=== PATIENT | male | born 1955 | race Caucasian/White ===

== ENCOUNTER 2017-06-17 21:14 | Emergency (ER) | payer BC ==
[~2017-06-17] VITALS: Ht 175.3 cm; Wt 104.6 kg
[2017-06-17 21:21] VITALS: TEMP 36.9; Ht 175.3 cm; Wt 104.6 kg
[2017-06-17] MEDS ORDERED: FENTANYL CITRATE INJ 50 MCG/1 ML 2 ML VIAL IV STA (23:07)
--- NOTE | 2017-06-17 23:13 | EMERGENCY ROOM VISIT NOTE ---
History Report prepared by Danyel: Asael Moscoso Under the Supervision of: Dr. Jeannine Israel D.O. First contact with patient: 22:56 Chief Complaint: FOOD BOLUS Stated Complaint: SICK HAVE PRESSURE ON STOMACH, THROWING UP BLOOD Nursing Triage Summary: Pt reports he was eating chicken at lunchtime and now it's stuck hx of food bolus unable to swallow spit History of Present Illness The patient is a 61 year old male who presents to the Emergency Room with complaints of a constant, worsening food bolus starting around 2014 tonight that is giving him chest pain. The patient states that he was eating barbecue lunch and potato salad at work, and then the food got stuck in his mid chest. He states that it would not go down even while drinking water. He states that afterwards he was spitting up saliva, and then he states that he eventually was vomiting and spitting up blood. He states that the pain is currently getting worse. The patient states that he has a history of food boluses for the past 6 months, though it has never been this bad, and it can usually be washed down with water. The patient has never had endoscopy, but he has had a colonoscopy in the [facility] in [facility] . He states that he has not been losing any weight recently. The patient has a history of diabetes, and he takes insulin, lisinopril, Keppra, and aspirin. He does not smoke, though he uses chewing tobacco. Source of History: patient Onset: 2014 Position: throat Quality: other (food bolus) Timing: constant, worsening Associated Symptoms: + chest pain, + vomiting Note: Associated symptoms: Coughing up blood Review of Systems See HPI for pertinent positives & negatives. A total of 10 systems reviewed and were otherwise negative. Past Medical & Surgical Medical Problems: (1) Hypertension Family History No pertinent family history Social History Smoking Status: Never Smoker Marital Status: Housing Status: lives with significant other Occupation Status: employed Current/Historical Medications Scheduled Aspirin (Aspirin Ec), 81 MG PO DAILY Hctz/Lisinopril (Lisinopril/Hctz 20/25 Mg), 1 TAB PO DAILY Insulin Degludec (Tresiba Flextouch), 80 UNIT SQ DAILY Levetiracetam (Keppra), 750 MG PO BID Lisinopril (Lisinopril), 40 MG PO DAILY Allergies Coded Allergies: Penicillins (Verified Allergy, Unknown, HIVES, 06/17/17) Phenytoin (Verified Allergy, Unknown, HIVES, 06/17/17) Physical Exam Vital Signs Date Time Temp Pulse Resp B/P (MAP) Pulse Ox O2 Delivery O2 Flow Rate FiO2 06/18/17 02:19 87 24 149/79 92 06/18/17 01:41 87 24 149/79 92 Nasal Cannula 2.0 06/18/17 01:13 90 06/18/17 01:05 94 Nasal Cannula 2.0 06/18/17 01:01 89 24 163/91 89 Room Air 06/18/17 00:31 85 14 176/96 98 Nasal Cannula 2.0 06/18/17 00:01 79 14 166/92 96 Nasal Cannula 2.0 06/17/17 23:51 82 22 161/86 100 Nasal Cannula 2.0 06/17/17 22:53 78 24 150/90 98 Room Air 06/17/17 21:58 78 06/17/17 21:58 Room Air 06/17/17 21:21 36.9 86 20 180/77 94 Room Air Physical Exam GENERAL: Very uncomfortable appearing HEENT: Head - normocephalic and atraumatic Pupils are equal, round, and reactive to light. Extraocular eye muscles are intact, and sclera are anicteric. Nose - moist nasal mucosa without discharge. Mouth - moist buccal mucosa. Oropharynx is nonerythematous and there is no tonsillar exudate or edema noted. Neck: Supple; no JVD, nuchal rigidity, cervical lymphadenopathy. Heart: Regular rate and rhythm. There is a normal S1 and S2 with no murmurs, clicks, or gallops appreciated. Lungs: Clear to auscultation bilaterally with no wheezes, rales, or rhonchi. Abdomen: Soft, completely nontender, nondistended, with good bowel sounds. There are no palpable pulsatile masses or hepatosplenomegaly. There is no guarding, rigidity, or rebound noted. Extremities: No evidence of cyanosis, clubbing, or edema. There are easily palpable peripheral pulses. Skin: warm and dry with good turgor and no rashes. Medical Decision & Procedures ER Provider Diagnostic Interpretation: Radiology results as stated below per my review and the radiologist's interpretation: CT CHEST With Contrast: Pneumomediastinum. There is gas outlining the esophagus. Small amount of ingested oral contrast is seen within the proximal third of the esophagus. Within the middle and distal third, there is food/liquid. The esophagus is mildly distended throughout with tapering seen distally. No contrast is visible within the mediastinum. No acute parenchymal lung disease. The thoracic aorta is normal in caliber. No dissection. No pneumothorax. Trace right pleural effusion. Calcified splenic granuloma. Laboratory Results 06/17/17 21:50 Red Blood Count 4.96, Mean Corpuscular Volume 82.9, Mean Corpuscular Hemoglobin 29.0, Mean Corpuscular Hemoglobin Concent 35.0, Mean Platelet Volume 11.2, Neutrophils (%) (Auto) 67.9, Lymphocytes (%) (Auto) 21.5, Monocytes (%) (Auto) 6.9, Eosinophils (%) (Auto) 3.2, Basophils (%) (Auto) 0.4, Neutrophils # (Auto) 5.70, Lymphocytes # (Auto) 1.81, Monocytes # (Auto) 0.58, Eosinophils # (Auto) 0.27, Basophils # (Auto) 0.03 06/17/17 21:50 Test 06/17/17 21:50 06/17/17 23:20 White Blood Count 8.40 K/uL (4.8-10.8) Red Blood Count 4.96 M/uL (4.7-6.1) Hemoglobin 14.4 g/dL (14.0-18.0) Hematocrit 41.1 % (42-52) Mean Corpuscular Volume 82.9 fL (80-100) Mean Corpuscular Hemoglobin 29.0 pg (25-34) Mean Corpuscular Hemoglobin Concent 35.0 g/dl (32-36) Platelet Count 234 K/uL (130-400) Mean Platelet Volume 11.2 fL (7.4-10.4) Neutrophils (%) (Auto) 67.9 % Lymphocytes (%) (Auto) 21.5 % Monocytes (%) (Auto) 6.9 % Eosinophils (%) (Auto) 3.2 % Basophils (%) (Auto) 0.4 % Neutrophils # (Auto) 5.70 K/uL (1.4-6.5) Lymphocytes # (Auto) 1.81 K/uL (1.2-3.4) Monocytes # (Auto) 0.58 K/uL (0.11-0.59) Eosinophils # (Auto) 0.27 K/uL (0-0.5) Basophils # (Auto) 0.03 K/uL (0-0.2) RDW Standard Deviation 38.6 fL (36.4-46.3) RDW Coefficient of Variation 12.9 % (11.5-14.5) Immature Granulocyte % (Auto) 0.1 % Immature Granulocyte # (Auto) 0.01 K/uL (0.00-0.02) Prothrombin Time 10.2 SECONDS (9.0-12.0) Prothromb Time International Ratio 1.0 (0.9-1.1) Activated Partial Thromboplast Time 25.2 SECONDS (21.0-31.0) Partial Thromboplastin Ratio 1.0 Est Creatinine Clear Calc Drug Dose 92.5 ml/min Estimated GFR () 93.7 Estimated GFR (Non- 80.9 BUN/Creatinine Ratio 13.0 (10-20) Calcium Level 8.8 mg/dl (8.5-10.1) Total Bilirubin 0.5 mg/dl (0.2-1) Direct Bilirubin 0.1 mg/dl (0-0.2) Aspartate Amino Transf (AST/SGOT) 24 U/L (15-37) Alanine Aminotransferase (ALT/SGPT) 38 U/L (12-78) Alkaline Phosphatase 150 U/L (45-117) Total Creatine Kinase 133 U/L (39-308) Creatine Kinase MB 2.0 ng/ml (0.5-3.6) Creatine Kinase MB Ratio 1.5 (0-3.0) Troponin I < 0.015 ng/ml (0-0.045) Total Protein 7.4 gm/dl (6.4-8.2) Albumin 3.6 gm/dl (3.4-5.0) Lipase 95 U/L (73-393) Beta-Hydroxybutyric Acid 0.98 mg/dL (0.2-2.81) Bedside Hemoglobin 13.6 g/dl (14.0-18.0) Bedside Hematocrit 40 % (42-52) Bedside Sodium 139 mEq/L (135-144) Bedside Potassium 3.6 mEq/L (3.3-5.0) Bedside Chloride 97 mEq/L (101-112) Bedside Total CO2 27 mEq/l (24-31) Anion Gap 20.0 mmol/L (16-25) Bedside Blood Urea Nitrogen 12 mg/dl (7-18) Bedside Creatinine 0.8 mg/dl (0.6-1.3) Bedside Glucose (other) 289 mg/dl (70-99) Bedside Ionized Calcium (Erick) 1.15 mmol/l (1.12-1.32) Laboratory results per my review. Medications Administered Medications (Trade) Dose Ordered Sig/Mk Route Start Time Stop Time Status Last Admin Dose Admin Fentanyl Citrate (Fentanyl Inj) 100 mcg NOW STAT IV 06/17/17 23:07 06/17/17 23:08 DC 06/17/17 23:14 100 MCG Hydromorphone HCl (Dilaudid Inj) 1 mg STK-MED ONCE .ROUTE 06/17/17 23:49 06/17/17 23:50 DC 06/17/17 23:49 1 MG Hydromorphone HCl (Dilaudid Inj) 1 mg NOW STAT IV 06/18/17 00:20 06/18/17 00:21 DC 06/18/17 00:31 1 MG Sodium Chloride 1,000 ml @ 250 mls/hr Q4H STAT IV 06/18/17 00:32 06/18/17 03:46 DC 06/18/17 00:45 250 MLS/HR Sodium Chloride 500 ml @ 999 mls/hr Q31M STAT IV 06/18/17 00:32 06/18/17 01:02 DC 06/18/17 00:45 999 MLS/HR Ceftriaxone Sodium (Rocephin Inj) 1 gm NOW STAT IV 06/18/17 00:48 06/18/17 00:49 DC 06/18/17 01:00 1 GM Metronidazole (Flagyl / Nss) 500 mg NOW STAT IV 06/18/17 00:48 06/18/17 00:49 DC 06/18/17 01:01 500 MG Pantoprazole Sodium 40 mg/ Syringe 10 ml @ 5 mls/min NOW ONCE IV 06/18/17 02:00 06/18/17 02:01 DC 06/18/17 02:01 5 MLS/MIN Procedure Fentanyl, Dilaudid Inj 2, Sodium Chloride, Metronidazole IV, Rocephin Inj, Pantoprazole ECG Indication: other (food bolus) Rate (beats per minute): 77 Rhythm: sinus rhythm Findings: RBBB, no acute ischemic change, no ectopy ED Course 2255: Past medical records reviewed. The patient was evaluated in room B9. A complete history and physical exam was performed. An IV lock was initiated and labs were drawn as above. 2307: Fentanyl Inj 100mcg IV 2349: Dilaudid Inj 1mg IV. The patient went for CT scan of the chest to rule out esophageal perforation. 0020: Dilaudid Inj 1mg IV. I reviewed the results of the CT scan with the patient and his family. 0025: I discussed the patient's case with Dr. Rodriguez, GI, and he is going to come and evaluate the patient but suggested that I transfer the patient to a tertiary care center 0032: Sodium Chloride 500 ml @ 999 mls/hr IV, Sodium Chloride 1000 ml @ 250 mls/ hr IV. 0048: Flagyl/ NSS 500mg IV, Rocephin Inj 1gm IV. The patient requested transfer to [facility]. 0058: There are currently no beds at [facility]. I discussed the patients case with Dr. Stanley, [facility], and he lectured me about the inadequacy of our hospital but agreed to accept the patient. 0112: I reevaluated the patient, and he was slightly more comfortable. 0119: The transfer center called back to state that Dr. Soto, [facility], would be the accepting physician. 0200: Dr. Rodriguez evaluated the patient and agreed to transfer to a tertiary care center where they could have thoracic surgery backup. 0208: I reevaluated the patient, and he was getting ready for transfer. I discussed the case with the flight crew at the bedside. Medical Decision The patient is a 61 year old male who presents to the ED with a food bolus. Differential diagnosis includes esophageal perforation, food bolus, esophageal spasm, esophageal constriction, aortic dissection, and cardiac ischemia. Lab results show: White blood count 8.4, stable H&H, glucose 289, normal renal function, BHA is normal, and normal coags This is a 61-year-old male patient who describes a 6 month history of intermittent food boluses which were cleared on their own by drinking water. Tonight, however, the patient developed a food bolus that he could not clear. Upon presentation to the emergency department, the patient was retching up blood. I was concerned about the possibility of a esophageal perforation. The patient went for a stat CT scan of the chest which confirmed a food bolus with gas around the outside of the esophagus. The patient's pain was controlled with IV analgesia and the patient was started on antibiotics. I arranged for transfer of the patient to [facility]. He was taken by [facility]. he remained hemodynamically stable while here in the emergency department. Medication Reconcilliation Current Medication List: was personally reviewed by me Blood Pressure Screening Patient's blood pressure: Elevated blood pressure Blood pressure disposition: Elevated BP felt to be situational Consults Time Called: 54 Consulting Physician: [facility] Returned Call: 57 I discussed the patients case with [facility], and he lectured me about the inadequacy of our hospital. Additional Consults: Time Called: 114 Consulted Physician: Amanda Heaton Returned Call: [phone] Additional Comments: I discussed the patient's case with Amanda Heaton, and he is going to accept the patient. Impression Primary Impression: Esophageal perforation Additional Impression: Food impaction of esophagus Critical Care I have personally spent greater than 90 minutes of critical care time in the direct management of this patient. This includes bedside care, interpretation of diagnostic studies, and testing, discussion with consultants, patient, and family members, and other required patient management activities. This 90 minutes is in excess of all separately billable procedures. Scribe Attestation The scribe's documentation has been prepared under my direction and personally reviewed by me in its entirety. I confirm that the note above accurately reflects all work, treatment, procedures, and medical decision making performed by me. Departure Information Dispostion Transfer Acute Care Facility Referrals Luis Moise M.D. (PCP) Patient Instructions My [facility] Problem Qualifiers
[2017-06-17] MEDS ORDERED: OPTIRAY 320 IV PRN (23:15)
[2017-06-17 23:33] LABS: ISTAT CREATININE 0.8 mg/dl (0.6-1.3); ISTAT HEMOGLOBIN 13.6 g/dl (14.0-18.0); ISTAT IONIZED CALCIUM 1.15 mmol/l (1.12-1.32)
[2017-06-17] MEDS ORDERED: ASPI81TA28 PO (23:45)
[2017-06-17] MEDS ORDERED: LSN/2025 PO (23:45)
[2017-06-17] MEDS ORDERED: LEVE750T PO (23:45)
[2017-06-17] MEDS ORDERED: LSN40 PO (23:45)
[2017-06-17] MEDS ORDERED: INSU1INJ33 SQ (23:47)
[2017-06-17] MEDS ORDERED: HYDROmorphone INJ 1 MG/ML SYR ONE (23:49)
[2017-06-18 00:18] LABS: BASO % 0.4 %; BASO ABS # 0.03 K/uL (0-0.2); COMPLETE YES; EOS % 3.2 %; HEMATOCRIT 41.1 % (42-52); IG% 0.1 %; LYMPH % 21.5 %; LYMPH ABS # 1.81 K/uL (1.2-3.4); MEAN CELL VOLUME 82.9 fL (80-100); MEAN PLATELET VOLUME 11.2 fL (7.4-10.4); MONO % 6.9 %; NEUT % 67.9 %; PLATELET COUNT 234 K/uL (130-400); RED BLOOD COUNT 4.96 M/uL (4.7-6.1)
[2017-06-18] MEDS ORDERED: HYDROmorphone INJ 1 MG/ML SYR IV STA (00:20)
[2017-06-18] MEDS ORDERED: SODIUM CHLORIDE 0.9% 500ML 500 ML IV STA (00:32)
[2017-06-18] MEDS ORDERED: SODIUM CHLORIDE 0.9% 1000ML 1,000 ML IV STA (00:32)
[2017-06-18 00:35] LABS: PROTHROMBIN TIME (PATIENT) 10.2 SECONDS (9.0-12.0)
[2017-06-18 00:42] LABS: ALT/SGPT 38 U/L (12-78); AST/SGOT 24 U/L (15-37); BLOOD UREA NITROGEN 13 mg/dl (7-18); CALCIUM 8.8 mg/dl (8.5-10.1); CARBON DIOXIDE 30 mmol/L (21-32); CHLORIDE 103 mmol/L (98-107); GLUCOSE 323 mg/dl (70-99); POTASSIUM 3.4 mmol/L (3.5-5.1); SODIUM 139 mmol/L (136-145)
[2017-06-18] MEDS ORDERED: CEFTRIAXONE SOD INJ 1 GM ADDVIAL IV STA (00:48)
[2017-06-18] MEDS ORDERED: METRONIDAZOLE 500MG / 100ML NSS IV STA (00:48)
[2017-06-18 00:52] LABS: ALKALINE PHOSPHATASE 150 U/L (45-117); BETA-HYDROXYBUTYRATE 0.98 mg/dL (0.2-2.81); CKMB/CK RATIO 1.5 (0-3.0)
[2017-06-18] MEDS ORDERED: PANTOprazole INJ 40 MG in SYRINGE 0 ML IV ONE (02:00)
[2017-06-18] MEDS ORDERED: NURSING VERBAL MED ORDER ONE (02:00)
[2017-06-18 02:19] VITALS: BP 149/79; PULSE 87; O2SAT 92
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
--- NOTE | 2017-06-18 07:21 | DIAGNOSTIC IMAGING REPORT ---
(CHEST) THORAX WITH HISTORY: 61 years-old Male acute chest pain. Concern for For esophageal rupture, mass or food bolus COMPARISON: None available TECHNIQUE: Multiple axial CT images of the chest were obtained following the intravenous administration of 93 mL Optiray 320. A dose lowering technique was used consistent with the principals of LETICIA. FINDINGS: There is a moderate amount of pneumomediastinum present with the majority of air surrounding the proximal and mid portions of the esophagus. Intramural air is also seen within the distal esophagus just proximal to the gastroesophageal junction, seen nicely on image 36 of the axial series. Trace air surrounds the left aspect of the esophagus near the hiatus with moderate amount of surrounding edema/fluid. There is marked circumferential wall thickening of the esophagus in the mid and distal portions. There is layering fluid and oral contrast within the mid portion of the esophagus. The majority of the pneumomediastinum appears to be centered around the esophagus but the left side near the carlitos as seen on images 23 and 24 of the axial series. The superior extent of the pneumomediastinum is not imaged. No evidence of tracheal rupture. No definite obstructing mass is identified. There is no pathologic adenopathy of the thorax. No thyroid nodule. The heart is normal in size. No thoracic aortic aneurysm. There is a trace right pleural effusion. There is no pneumothorax. Patchy bibasilar opacities suggest atelectasis. Linear pleural-based subsegmental consolidation of the lateral basal segment left lower lobe suggests pleural parenchymal scarring. Gallbladder is contracted. There is moderate pancreatic atrophy. The bones appear intact with multilevel endplate spurring throughout the thoracic spine. IMPRESSION: 1. 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 Intramural air extends to the level of the diaphragmatic hiatus. There is associated moderate amount of surrounding fluid adjacent to the esophagus as well as moderate amount of pneumomediastinum. 2. Layering oral contrast and likely fluid or food bolus is seen within the esophageal lumen without definite obstructing mass identified. 3. Trace right pleural effusion. 4. Bibasilar subsegmental atelectasis. The results were communicated with the emergency room department by the statrad radiologist at time of dictation. The above report was generated using voice recognition software. It may contain grammatical, syntax or spelling errors. Electronically signed by: Bill Truong M.D. 06/18/2017 7:20 AM Dictated Date/Time: 06/18/2017 7:11 AM
== END 2017-06-18 02:10 | disposition short-term general hospital (02) ==
LOC: C.EDB 21:15
DX: T18.128A Food in esophagus causing other injury, initial encounter (principal); K22.3 Perforation of esophagus; X58.XXXA Exposure to other specified factors, initial encounter; E11.9 Type 2 diabetes mellitus without complications; I10 Essential (primary) hypertension; Z79.4 Long term (current) use of insulin; Z79.82 Long term (current) use of aspirin; Z79.899 Other long term (current) drug therapy; F17.220 Nicotine dependence, chewing tobacco, uncomplicated

== ENCOUNTER → 2017-09-23 | Day surgery (SDC) | payer BC, OTHER ==
[~2017-09-23] VITALS: Ht 175.3 cm; Wt 103.0 kg
[~2017-09-23] MED LIST: ASPI81TA28 PO; INSU1INJ33 SQ; LEVE750T PO; LIDOCAINE HCL 2% 2 ML VIAL (20MG/ML) ONE; LSN/2025 PO; LSN40 PO; MIDAZOLAM HCL 1 MG/ML 2ML VIAL ONE; ONDANSETRON INJ 2 MG/ML 2 ML VIAL ONE; PROPOFOL IV EMULSION 10 MG/ML 20 ML VIAL IV ONE; SODIUM CHLORIDE 0.9% 500ML 500 ML IV ONE
[2017-09-23 14:27] VITALS: Ht 175.3 cm; Wt 103.0 kg
--- NOTE | 2017-09-23 14:38 | Endo History and Physical ---
History & Physical Date of Service: Sep 23, 2017. Chief Complaint: dysphagia Referring Physician: Dr. Akins History of Present Illness hx esophageal food bolus with spontaneous perforation for EGD for sampling Past Surgical History Hx Cardiac Surgery: No Hx Internal Defibrillator: No Hx Pacemaker: No Hx Abdominal Surgery: Yes (hernia as child) Hx of Implantable Prosthesis: No Hx Post-Op Nausea and Vomiting: No Hx Cancer Surgery: No Hx Thoracic Surgery: No Hx Orthopedic: No Hx Urinary Tract Surgery: No Family History Polyp Social History Smoking Status: Never Smoker Hx Substance Use: No Allergies Coded Allergies: Penicillins (Verified Allergy, Unknown, HIVES, 06/17/17) Phenytoin (Verified Allergy, Unknown, HIVES, 06/17/17) Current Medications Reported Home Medications Medications Dose Route/Sig Max Daily Dose Days Date Category Tresiba Flextouch (Insulin Degludec) 100 Unit/Ml Inj 80 Unit SQ DAILY 06/17/17 Reported Aspirin Ec (Aspirin) 81 Mg Tab 81 Mg PO DAILY 06/17/17 Reported Keppra (Levetiracetam) 750 Mg Tab 750 Mg PO BID 06/17/17 Reported Lisinopril 40 Mg Tab 40 Mg PO DAILY 06/17/17 Reported Lisinopril/Hctz 20/25 Mg (HCTZ/Lisinopril) 1 Ea Tab 1 Tab PO DAILY 06/17/17 Reported Vital Signs Weight (Kilograms): 103 Height (Feet): 5 Height (Inches): 9 Physical Exam General Appearance: WD/WN, no apparent distress Respiratory/Chest: Auscultation: breath sounds normal Cardiovascular: Heart Auscultation: RRR Abdomen: Bowel Sounds: normal Inspection & Palpation: soft, non-distended, no tenderness, guarding & rebound Assessment and Plan EGD/Bx possible dilation
--- NOTE | 2017-09-23 16:06 | Anesthesiology Progress Note ---
Anesthesia Post Op Note Date & Time Sep 23, 2017 at 16:05 Vital Signs Pain Intensity: 0 Vital Signs Past 12 Hours Date Time Temp Pulse Resp B/P (MAP) Pulse Ox O2 Delivery O2 Flow Rate FiO2 09/23/17 14:36 37 64 18 180/85 (116) 98 Room Air Notes Mental Status: alert / awake / arousable, participated in evaluation Pt Amnestic to Procedure: Yes Nausea / Vomiting: adequately controlled Pain: adequately controlled Airway Patency, RR, SpO2: stable & adequate BP & HR: stable & adequate Hydration State: stable & adequate Anesthetic Complications: no major complications apparent
--- NOTE | 2017-09-23 16:14 | GI REPORT ---
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 [place], Follow-up of esophageal perforation; on PPI therapy Medicines: Propofol per Anesthesia Complications: No immediate complications. Estimated blood loss: Minimal. Estimated Blood Loss: Estimated blood loss was minimal. Procedure: Pre-Anesthesia Assessment: - Prior to the procedure, a History and Physical was performed, and patient medications and allergies were reviewed. The patient's tolerance of previous anesthesia was also reviewed. The risks and benefits of the procedure and the sedation options and risks were discussed with the patient. All questions were answered, and informed consent was obtained. Prior Anticoagulants: The patient has taken no previous anticoagulant or antiplatelet agents. ASA Grade Assessment: III - A patient with severe systemic disease. After reviewing the risks and benefits, the patient was deemed in satisfactory condition to undergo the procedure. After obtaining informed consent, the endoscope was passed under direct vision. Throughout the procedure, the patient's blood pressure, pulse, and oxygen saturations were monitored continuously. The scope was introduced through the mouth, and advanced to the third part of duodenum. The upper GI endoscopy was accomplished without difficulty. The patient tolerated the procedure well. Findings: The upper third of the esophagus and middle third of the esophagus were normal. There is no evidence of perforation 36 to 37 cm from the incisors. Small sinus channels at distal esophagus.These defects was small. The upper third of the esophagus, middle third of the esophagus and lower third of the esophagus were normal. Biopsies were taken with a cold forceps for histology. Estimated blood loss was minimal. Verification of patient identification for the specimen was done by the physician and technician helper instrument using the patient's name and medical record number. A 3 cm hiatus hernia was found. The proximal extent of the gastric folds (end of tubular esophagus) was 37 cm from the incisors. The hiatal narrowing was 40 cm from the incisors. The Z-line was 37 cm from the incisors. The entire examined stomach was normal. The examined duodenum was normal. Retained gastric contents are not identified on this exam. Impression: - Normal upper third of esophagus and middle third of esophagus. - There is no evidence of perforation in the esophagus. - Normal upper third of esophagus, middle third of esophagus and lower third of esophagus. Biopsied. - 3 cm hiatus hernia. - Normal stomach. - Normal examined duodenum. Recommendation: - Discharge patient to home (ambulatory). - Resume regular diet. - Return to GI clinic as previously scheduled. - Continue present medications. - Await pathology results. MD Jacques Cha MD 09/23/2017 4:13:17 PM This report has been signed electronically. Note Initiated On: 09/23/2017 3:26 PM I attest to the content of the Intraoperative Record and orders documented therein, exceptions below
--- NOTE | 2017-09-23 16:18 | Discharge Instructions ---
Endoscopy Patient Instructions Date / Procedure(s) Performed Sep 23, 2017. EGD Allergy Information Coded Allergies: Penicillins (Verified Allergy, Unknown, HIVES, 06/17/17) Phenytoin (Verified Allergy, Unknown, HIVES, 06/17/17) Discharge Date / Findings Sep 23, 2017. HH small sinus tracts in distal esophagus( previous hx of esophageal perforation Medication Instructions Restart Stopped Medication(s): Reported Home Medications Medications Dose Route/Sig Max Daily Dose Days Date Category Tresiba Flextouch (Insulin Degludec) 100 Unit/Ml Inj 80 Unit SQ DAILY 06/17/17 Reported Aspirin Ec (Aspirin) 81 Mg Tab 81 Mg PO DAILY 06/17/17 Reported Keppra (Levetiracetam) 750 Mg Tab 750 Mg PO BID 06/17/17 Reported Lisinopril 40 Mg Tab 40 Mg PO DAILY 06/17/17 Reported Lisinopril/Hctz 20/25 Mg (HCTZ/Lisinopril) 1 Ea Tab 1 Tab PO DAILY 06/17/17 Reported PPI daily Reported Home Medications Medications Dose Route/Sig Max Daily Dose Days Date Category Tresiba Flextouch (Insulin Degludec) 100 Unit/Ml Inj 80 Unit SQ DAILY 06/17/17 Reported Aspirin Ec (Aspirin) 81 Mg Tab 81 Mg PO DAILY 06/17/17 Reported Keppra (Levetiracetam) 750 Mg Tab 750 Mg PO BID 06/17/17 Reported Lisinopril 40 Mg Tab 40 Mg PO DAILY 06/17/17 Reported Lisinopril/Hctz 20/25 Mg (HCTZ/Lisinopril) 1 Ea Tab 1 Tab PO DAILY 06/17/17 Reported Provider Instructions Activity Restrictions - No exercising or heavy lifting for 24 hours. - Do not drink alcohol the day of the procedure. - Do not drive a car or operate machinery until the day after the procedure. - Do not make any important decisions or sign important papers in 24 hours after the procedure. Following Day: - Return to full activity which may include returning to work/school. Diet Start your diet with liquids and light foods (jello, soup, juice, toast). Then eat your usual diet if not nauseated. Treatment For Common After Affects For mild abdominal pain, bloating, or excessive gas: - Rest - Eat lightly - Lie on right side Follow-Up Information Follow-up with Dr. Akins as scheduled Anesthesia Information What You Should Know You have had a procedure that required some medicine to reduce anxiety and discomfort. This treatment is called moderate sedation. After receiving the treatment, you may be sleepy, but you will be able to breathe on your own. The effects of the treatment may last for several hours. Follow these instructions along with Activity/Diet recommendations noted above: * Do NOT do anything where dizziness or clumsiness would be dangerous. * Rest quietly at home today, then you can be up and about tomorrow. * Have a responsible person stay with you the rest of today. * You may have had an I.V. today. If so, you may take the dressing off later today. Recommendations Call your doctor if: * Trouble breathing * Continuous vomiting for more than 24 hours * Temperature above 101 degrees * Severe abdominal pain or bloating * Pain not relieved by pain medicine ordered * There is increased drainage or redness from any incision * A large amount of rectal bleeding greater than 2-3 tablespoons. (If you had a polyp/s removed or have hemorrhoids, a small amount of blood - from the rectum is to be expected.) * You have any unanswered questions or concerns. IN THE EVENT OF A SERIOUS EMERGENCY, GO TO THE NEAREST EMERGENCY ROOM Your discharge instructions were prepared by provider Jacques Rodriguez. Patient Instructions Signature Page Mp Reyes Patient (or Guardian) Signature/Date: I have read and understand the instructions given to me by my caregivers. Caregiver/RN/Doctor Signature/Date: The above-named patient and/or guardian has received patient instructions on this date. + Original Patient Signature Page (only) stays with chart. Please make copy for patient.
[2017-09-23 16:27] VITALS: BP 157/92; PULSE 65; O2SAT 95
== END | disposition home or self-care (01) ==
LOC: C.GI 14:05
PROVIDERS: ATTEND Internal Medicine Gastroenterology
DX: K20.0 Eosinophilic esophagitis (principal); K44.9 Diaphragmatic hernia without obstruction or gangrene; Z79.82 Long term (current) use of aspirin; Z79.899 Other long term (current) drug therapy